=== PATIENT | male | born 1970 | race African-American/Black ===

== ENCOUNTER 2016-12-14 06:19 | Emergency (ER) | payer OTHER ==
[~2016-12-14] VITALS: Ht 175.3 cm; Wt 99.8 kg
[2016-12-14 07:21] LABS: Basophils % (auto) 0.3 % (0.0-2.0); Eosinophils % (auto) 2.1 % (0.0-7.0); Lymphocytes % (auto) 32.3 % (10.0-50.0); Monocytes % (auto) 8.1 % (0.0-12.0); Neutrophils % (auto) 57.2 % (37.0-80.0); White Blood Cell 4.1 10^3/uL (4.4-10.8)
[2016-12-14 07:22] LABS: Basophils # (auto) 0 uL; Eosinophils # (auto) 0.1 uL; Hematocrit 43.9 % (41.0-53.0); Lymphocytes # (auto) 1.3 uL; Mean Corpuscular Hemoglobin 29.2 pg (28.0-32.0); Mean Corpuscular Volume 91.3 fL (80.0-100.0); Mean Platelet Volume 7.4 fL (7.4-10.4); Monocytes # (auto) 0.3 uL; Neutrophils # (auto) 2.4 uL; Platelet Count (auto) 319 10^3/uL (140-450); Red Cell Distribution Width 13.4 % (11.6-16.0)
[2016-12-14 07:33] LABS: Albumin 3.7 g/dL (3.4-5.0); BUN/Creatinine Ratio 9.6; Bilirubin, Total 0.4 mg/dL (0.2-1.0); Calcium 8.8 mg/dL (8.5-10.1); Potassium 4.1 mmol/L (3.5-5.1); Total Protein 8.1 g/dL (6.4-8.2)
[2016-12-14 09:24] LABS: Urine Bilirubin Negative (Negative); Urine Blood Negative /uL (Negative); Urine Color Yellow (Yellow); Urine Glucose Normal (Normal); Urine Ketone Negative (Negative); Urine Nitrite Negative (Negative); Urine RBC <1 /hpf (0 - 3); Urine pH 6.5 (5.0-8.0)
[2016-12-14 11:25] VITALS: BP 151/103
== END 2016-12-14 12:56 | disposition home or self-care (01) ==
LOC: ER 06:20
DX: K59.00 Constipation, unspecified (principal); R30.0 Dysuria
CPT/HCPCS: 36415; 74000; 80053; 81001; 82150; 83690; 83735; 85025

== ENCOUNTER 2017-10-16 07:41 | Emergency (ER) | payer OTHER ==
[~2017-10-16] VITALS: Ht 175.3 cm; Wt 102.1 kg
[2017-10-16 07:45] VITALS: BP 133/97
== END 2017-10-16 09:58 | disposition home or self-care (01) ==
LOC: ER 07:41
DX: N39.0 Urinary tract infection, site not specified (principal); R35.8 Other polyuria; I10 Essential (primary) hypertension
CPT/HCPCS: 74176; 81002; 82962

== ENCOUNTER 2020-06-14 06:07 | Emergency (ER) | payer OTHER ==
[~2020-06-14] VITALS: Ht 175.3 cm; Wt 102.1 kg
[2020-06-14 07:34] VITALS: BP 168/99
== END 2020-06-14 07:48 | disposition home or self-care (01) ==
LOC: ER 06:07
DX: S83.92XA Sprain of unspecified site of left knee, initial encounter (principal); I10 Essential (primary) hypertension; X50.9XXA Other and unspecified overexertion or strenuous movements or postures, initial encounter; Y93.I9 Activity, other involving external motion; Y92.828 Other wilderness area as the place of occurrence of the external cause; Y99.8 Other external cause status
CPT/HCPCS: 73562

== ENCOUNTER 2022-09-06 07:20 | Emergency (ER) | payer OTHER ==
[~2022-09-06] VITALS: Ht 175.3 cm; Wt 95.0 kg
[2022-09-06 07:47] VITALS: BP 133/75
[2022-09-06] MEDS ORDERED: KETOROLAC TROMETH 60MG/2ML VIAL IM ONE (08:00)
[2022-09-06] MEDS ORDERED: methylPREDNISolone SOD SUCC 125 MG/2 ML VL IM ONE (08:00)
[2022-09-06] MEDS ORDERED: INDO50CA82 PO (08:07)
[2022-09-06] MEDS ORDERED: COLC1CAP PO (08:07)
== END 2022-09-06 08:14 | disposition home or self-care (01) ==
LOC: ER 07:20
DX: M10.9 Gout, unspecified (principal); I10 Essential (primary) hypertension
CPT/HCPCS: 96372; 99284; J1885; J2930

== ENCOUNTER 2023-09-05 05:22 | Emergency (ER) | payer OTHER ==
[~2023-09-05] VITALS: Ht 175.3 cm; Wt 97.7 kg
[~2023-09-05 05:22] MED LIST: CEPH-510 PO; COLC1CAP PO; IBU600T PO; INDO50CA82 PO
[2023-09-05 05:38] VITALS: BP 150/82; PULSE 58; RESP 17; TEMP 98.6; O2SAT 97
[2023-09-05 06:56] LABS: Urine Bacteria NONE SEEN /hpf (None Seen); Urine Blood Negative /uL (Negative); Urine Clarity Clear (Clear); Urine Color Colorless (Yellow); Urine Protein, UAD Negative (Negative); Urine Specific Gravity 1.018 (1.001-1.035); Urine WBC <1 /hpf (0 - 3)
[2023-09-05] MEDS ORDERED: cefTRIAXone SOD 500 MG VL IM ONE (07:45)
[2023-09-05] MEDS ORDERED: CIPR-173 PO (07:45)
[2023-09-07 00:06] LABS: Chlamydia Trachomatis, NAA Negative (Negative); Neisseria gonorrhoeae, NAA Negative (Negative)
== END 2023-09-05 08:07 | disposition home or self-care (01) ==
LOC: ER 05:22
DX: Z11.3 Encounter for screening for infections with a predominantly sexual mode of transmission (principal); R35.0 Frequency of micturition; R39.15 Urgency of urination; R30.0 Dysuria; I10 Essential (primary) hypertension; M10.9 Gout, unspecified; Z79.1 Long term (current) use of non-steroidal anti-inflammatories (NSAID); Z79.2 Long term (current) use of antibiotics; Z79.899 Other long term (current) drug therapy
CPT/HCPCS: 81001; 87491; 87591; 96372; 99283; J0696

== ENCOUNTER 2025-02-24 07:44 | Emergency (ER) | payer OTHER ==
[~2025-02-24] VITALS: Ht 175.3 cm; Wt 119.4 kg
[~2025-02-24 07:44] MED LIST changes: +CIPR-173 PO
[2025-02-24 08:10] VITALS: BP 121/79; PULSE 86; RESP 20; TEMP 98; O2SAT 95
--- NOTE | 2025-02-24 08:24 | ED.PDOC ---
Musculoskeletal HPI Comments 54 year male presents for left foot pain L foot,across the dorsal foot Described as throbbing Worsens with ambulation Chief Complaint: Lower Extremity Time Seen by MD: 08:00 Primary Care Provider: [facility] Reviewed Notes: Nurses Notes, Medications, Allergies Allergies: Coded Allergies: NO KNOWN ALLERGIES (Unverified , 09/29/11) Home Meds Active Scripts Ciprofloxacin Hcl (Cipro) 500 Mg Tab, 1 TAB PO BID, #14 TAB Prov:BETY MEJIA 09/05/23 Ibuprofen Micronized (MOTRIN TABLET) 600 Mg Tb, 600 MG PO TID PRN for 5 Days, #15 TAB *Black box warning-NSAIDS can increase risk of [place] & hypertension, GI irritation, ulceration, bleed, perferation. Do not use post cardiac surgery. Use short duration/lowest effective dose. Prov:HUSSEIN CHI MD 02/11/23 Cephalexin ( Keflex 500) 500 Mg Cap, 1 CAP PO TID for 7 Days, #21 CAP Prov:HUSSEIN CHI MD 02/11/23 Colchicine (Colchicine) 0.6 Mg Cap, 0.6 MG PO BID PRN, #30 CAP Prov:BETY MEJIA 09/06/22 Indomethacin (Indomethacin) 50 Mg Cap, 50 MG PO TID, #30 CAP Prov:BETY MEJIA 09/06/22 Information Source: Patient Mode of Arrival: Ambulatory Past Medical History PAST MEDICAL HISTORY: Gout, HTN, UTI'S Surgical History: Denies all surgeries Family History Family History: Reviewed,noncontributory to illness, No family hx of HTN, No family hx of Stroke Social History Smoker: Non-Smoker Alcohol: Occasionally Drugs: Denies Drug Use Lives In: Home All Other Systems: Reviewed and Negative (per hpi) Physical Exam General Appearance: No Apparent Distress, Normal HEENT: Normal ENT Inspection, Pharynx Normal, TMs Normal Neck: Full Range of Motion, Non-Tender, Normal, Normal Inspection Respiratory: Chest Non-Tender, Lungs Clear, No Accessory Muscle Use, No Respiratory Distress, Normal Breath Sounds Cardiovascular: No Edema, No JVD, No Murmur, No Gallop, Normal Peripheral Pulses, Regular Rate/Rhythm Breast Exam: Deferred Gastrointestinal: No Organomegaly, Non Tender, No Pulsatile Mass, Normal Bowel Sounds, Soft Genitalia: Deferred Pelvic: Deferred Rectal: Deferred Extremities: No calf tenderness, Normal capillary refill, Normal inspection, Normal range of motion, Non-tender, No pedal edema Musculoskeletal : Apperance: Normal Neurologic: Alert, combination building inspector II-XII nml as Tested, No Motor Deficits, Normal Affect, Normal Mood, No Sensory Deficits Cerebellar Function: Normal Reflexes: Normal Skin: Dry, Normal Color, Warm Lymphatic: No Adenopathy Was a procedure done? Was a procedure done?: No Images 1 - TTP across inferior extensor retinaculum Differential Diagnosis EXT Differential Diagnosis: Sprain X-Ray, Labs, Meds, VS Vital Signs Date Time Temp Pulse Resp B/P (MAP) Pulse Ox O2 Delivery O2 Flow Rate FiO2 02/24/25 08:10 98.0 86 20 121/79 (93) 95 98.0 02/24/25 07:51 98.0 86 20 121/79 (93) 95 98.0 Current Medications Medications (Trade) Dose Ordered Sig/Cornel Route Start Time Stop Time Status Last Admin Ketorolac Tromethamine (Toradol Injection) 60 mg ONCE ONCE IM 02/24/25 08:30 02/24/25 08:38 DC 02/24/25 08:40 PATIENT: ROXANA CRANDALL RACCT: [id number]: [id number] : 1970 LOC: ER ROOM / BED: / AGE / SEX: 54 / M ADM STATUS: REG ER SERVICE 2 ORDERING PHYSICIAN: ONEYDA ARAGON NP PROCEDURE(s): LFOOT - L FOOT 3 VIEW XRAY REASON: left foot pain ORDER NUMBER(s): [id number], ACCESSION NUMBER(s): [id number] CLINICAL INDICATION: left foot pain TECHNIQUE: 3 radiographic views of the left foot were obtained. Comparison: None FINDINGS/IMPRESSION: There is no evidence of acute fracture or dislocation. The visualized joint space is well maintained. The alignment is anatomical. There is no radiopaque foreign body. ATED BY: ANTONIO AC MD DICTATED DATE/TIME: 02/24/25927 SIGNED BY: ANTONIO AC MD SIGNED DATE/TIME: 02/24/25927 CC: X-Ray, Labs, Meds, VS Comment History and examination consistent of muscular injury X-rays ordered, read by radiologist and reviewed by me Low likelihood of bony or more serious injury, VSS, pt stable Take NSAIDs w/ food as needed for pain Recommended heat therapy Reviewed RICE management Avoid heavy lifting or strenuous activity Recommended range of motion exercises and limit heavy activity for 1 week If no improvement advised patient to return to the emergency department for follow-up. Time of 1ST Reevaluation: 09:36 Reevaluation 1ST: Improved Patient Education/Counseling: Diagnosis, Treatment Family Education/Counseling: Diagnosis, Treatment Departure 1 Departure Time of Disposition: 09:39 Impression: Primary Impression: Foot tendinitis Disposition: HOME / SELF CARE / HOMELESS Condition: Stable e-Prescriptions Naproxen (Naproxen) 500 Mg Tab 500 MG PO BIDPC for 7 Days, #14 TAB 0 Refills Prov: ONEYDA ARAGON NP 02/24/25 Critical Care Note Critical Care Time?: No Stability Stability form required: No Heart Score Heart Score: Heart Score Response (Comments) Value History N/A 0 EKG N/A 0 Age N/A 0 Risk Factors N/A 0 Troponin N/A 0 Total 0 ONEYDA ARAGON NP Feb 24, 2025 08:24
[2025-02-24] MEDS: KETOROLAC TROMETH 60MG/2ML VIAL IM ONE (08:40)
--- NOTE | 2025-02-24 09:30 | DVH ---
CLINICAL INDICATION: left foot pain TECHNIQUE: 3 radiographic views of the left foot were obtained. Comparison: None FINDINGS/IMPRESSION: There is no evidence of acute fracture or dislocation. The visualized joint space is well maintained. The alignment is anatomical. There is no radiopaque foreign body.
[2025-02-24] MEDS ORDERED: NAPR-746 PO (09:40)
== END 2025-02-24 09:55 | disposition home or self-care (01) ==
LOC: ER 07:44
DX: M77.50 Other enthesopathy of unspecified foot and ankle (principal); M10.9 Gout, unspecified; I10 Essential (primary) hypertension
CPT/HCPCS: 73630; 96372; 99283; J1885